=== PATIENT | female | born 1995 | race Caucasian/White ===

== ENCOUNTER 2018-01-27 14:04 | Emergency (ER) | payer OTHER ==
[~2018-01-27] VITALS: Ht 162.6 cm; Wt 90.7 kg
[2018-01-27 14:33] VITALS: BP 128/64
--- NOTE | 2018-01-27 15:25 | NUR ---
PT AMBULATES TO BED 8
--- NOTE | 2018-01-27 15:30 | NUR ---
PATIENT PRESENTS TO ED WITH COMPLAINTS OF ABNORMAL VAGINAL BLEEDING X 3 DAYS. PATIENT STATES SHE SOAKS THROUGH 2-3 PADS PER HOUR. DENIES N/V/D; SKIN IS PINK/WARM/DRY; AAOX4 WITH EVEN AND STEADY GAIT; LUNGS CLEAR BL; HR EVEN AND REGULAR; PT DENIES ANY FEVER, CP, SOB, OR COUGH AT THIS TIME; PATIENT STATES PAIN OF 0/10 AT THIS TIME; VSS; PATIENT POSITIONED FOR COMFORT; HOB ELEVATED; BEDRAILS UP X1; BED DOWN. ER MD MADE AWARE OF PT STATUS.
[2018-01-27 16:14] LABS: BASOPHILS % (AUTO) 0.2 % (0.0-2.0); EOSINOPHILS # (AUTO) 0.2 K/uL (0-0.4); EOSINOPHILS % (AUTO) 1.3 % (0.0-4.0); HEMATOCRIT 40.3 % (36-48); HEMOGLOBIN 12.9 g/dL (12.0-16.0); LYMPHOCYTES # (AUTO) 1.8 K/uL (2.5-16.5); MEAN CORPUSCULAR HEMOGLOBIN 26 pg (27-31); MEAN CORPUSCULAR HGB CONC 32 g/dL (33-37); MEAN CORPUSCULAR VOLUME 81.2 fL (80-94); MONOCYTES # (AUTO) 0.6 K/uL (0.8-1.0); MONOCYTES % (AUTO) 4.5 % (1.7-9.3); NEUTROPHILS # (AUTO) 11.5 K/uL (1.8-7.7); PLATELET COUNT (AUTO) 310 K/uL (140-450); RED BLOOD CELL COUNT(AUTO) 4.96 MIL/uL (4.20-5.40); RED CELL DISTRIBUTION WIDTH 15.7 % (11.6-13.7); WHITE BLOOD COUNT (AUTO) 14.2 K/uL (4.8-10.8)
[2018-01-27 16:21] LABS: BILIRUBIN,URINE NEGATIVE (NEGATIVE); BLOOD, URINE 3+ (NEGATIVE); LEUKOCYTE ESTERASE ,URINE TRACE (NEGATIVE); NITRITE, URINE NEGATIVE (NEGATIVE); UGLUCOSE NEGATIVE (NEGATIVE)
[2018-01-27 16:25] LABS: APPEARANCE,URINE BLOODY (CLEAR); COLOR,URINE BLOODY (YELLOW)
[2018-01-27 16:26] LABS: RBC,URINE TOO NUMEROUS TO COUN /HPF (0-5)
[2018-01-27 16:31] LABS: PROTHROMBIN TIME 9.3 secs (10.8-13.4)
[2018-01-27 16:38] VITALS: BP 128/64
== END 2018-01-27 16:35 | disposition home or self-care (01) ==
LOC: MED 14:04
DX: N92.0 Excessive and frequent menstruation with regular cycle (principal); N94.6 Dysmenorrhea, unspecified
CPT/HCPCS: 36415; 81001; 81025; 85025; 85610; 85730; 87086; 99284

== ENCOUNTER 2020-01-12 02:29 | Inpatient (IN) | payer OTHER ==
[~2020-01-12] VITALS: Ht 162.6 cm; Wt 104.3 kg
--- NOTE | 2020-01-12 02:35 | NUR ---
BIB WHEELCHAIR TO ER BED 5
[2020-01-12 02:40] VITALS: BP 129/77
--- NOTE | 2020-01-12 02:48 | NUR ---
DR. RENEE AT BEDSIDE.
[2020-01-12] MEDS ORDERED: IBUPROFEN 800 MG TAB PO ONE (02:50)
--- NOTE | 2020-01-12 02:57 | NUR ---
PT UNABLE TO GIVE URINE AT THIS TIME.
--- NOTE | 2020-01-12 02:57 | NUR ---
24 Y/O F PRESENTS TO ED C/O RLQ PAIN / RADIATING TO MIDDLE LOWER ABD X 0100. PT ADMITS TO N/V. PT DESCRIBES THE PAIN TO BE SHARP AND STABBING. PT IS 15 WEEKS WITH FIRST BABY. DOES HAVE CARE. DENIES ANY VAGINAL DISCHARGE, BLEEDING. BED LOCKED AND IN LOWEST POSITION, SIDE RAIL UP X1. WILL CONTINUE TO MONITOR. MHX: DENIES NKA
[2020-01-12 03:00] LABS: ANION GAP 15.4 (8-16); CREATININE 0.6 mg/dL (0.6-1.3); POTASSIUM 3.4 mmol/L (3.5-5.1)
[2020-01-12 03:10] LABS: BASOPHILS % (AUTO) 0.2 % (0.0-2.0); EOSINOPHILS # (AUTO) 0.3 K/uL (0-0.4); EOSINOPHILS % (AUTO) 2.2 % (0.0-4.0); HEMATOCRIT 37.3 % (36-48); HEMOGLOBIN 12.1 g/dL (12.0-16.0); LYMPHOCYTES # (AUTO) 3.2 K/uL (2.5-16.5); LYMPHOCYTES % (AUTO) 23.8 % (20.5-51.1); MEAN CORPUSCULAR HEMOGLOBIN 27 pg (27-31); MEAN CORPUSCULAR HGB CONC 32 g/dL (33-37); MEAN CORPUSCULAR VOLUME 83.2 fL (80-94); MONOCYTES # (AUTO) 0.8 K/uL (0.8-1.0); MONOCYTES % (AUTO) 6.2 % (1.7-9.3); NEUTROPHILS # (AUTO) 9.2 K/uL (1.8-7.7); NEUTROPHILS % (AUTO) 67.6 % (42.2-75.2); PLATELET COUNT (AUTO) 289 K/uL (140-450); RED BLOOD CELL COUNT(AUTO) 4.49 MIL/uL (4.20-5.40); RED CELL DISTRIBUTION WIDTH 16.5 % (11.6-13.7); WHITE BLOOD COUNT (AUTO) 13.5 K/uL (4.8-10.8)
--- NOTE | 2020-01-12 03:10 | NUR ---
ASSISTED PT TO THE RESTROOM VIA WHEELCHAIR, PT TRYING TO GIVE URINE.
[2020-01-12] MEDS ORDERED: ONDANSETRON 4 MG/2 ML VIAL IM ONE (03:15)
--- NOTE | 2020-01-12 03:20 | NUR ---
URINE SAMPLE TAKEN TO LAB BY CLARICE HARRY.
[2020-01-12 03:35] LABS: APPEARANCE,URINE CLOUDY (CLEAR); BILIRUBIN,URINE NEGATIVE (NEGATIVE); BLOOD, URINE NEGATIVE (NEGATIVE); COLOR,URINE YELLOW (YELLOW); LEUKOCYTE ESTERASE ,URINE TRACE (NEGATIVE); NITRITE, URINE NEGATIVE (NEGATIVE); UGLUCOSE NEGATIVE (NEGATIVE)
[2020-01-12 03:40] LABS: RBC,URINE 0-5 /HPF (0-5)
[2020-01-12] MEDS ORDERED: NACL 0.9% 1,000 ML IV ONE ×2 (04:20→05:00)
[2020-01-12] MEDS ORDERED: MORPHINE SULFATE 2 MG/ML SYR IVP ONE ×3 (04:20→06:40)
--- NOTE | 2020-01-12 04:37 | NUR ---
RT forearm PIVC initiated. tolerated well.
--- NOTE | 2020-01-12 05:30 | NUR ---
PT STILL IN ALOT OF PATIENT, PROVIDED PT WITH WARM BLANKETS, WARM PACKS WITH NO RELIEF. MEDICATED PT PER DR'S ORDERS, NO RELIEF.
[2020-01-12] MEDS ORDERED: PNV1TABL5 PO (06:01)
[2020-01-12] MEDS ORDERED: MORPHINE SULFATE 2 MG/ML SYR ONE ×2 (06:39→08:34)
--- NOTE | 2020-01-12 06:40 | NUR ---
SPOKE TO DR. RANGEL ON THE PHONE REGARDING PT'S PAIN LEVEL. MEDICATED PT AND PROVIDED NON-PHARMACOLOGICAL INTERVENTION WITH NO RELIEF. PER DR. RANGEL, OK TO GIVE MORPHINE 2 MG IVP.
--- NOTE | 2020-01-12 07:10 | NUR ---
GAVE REPORT TO ROMMEL BARNEY FOR CONTINUITY OF CARE.
--- NOTE | 2020-01-12 07:57 | NUR ---
PT IS AWAKE AND ALERT IN BED, STATES SHE FEELS PAIN COMING BACK BUT DOES NOT WANT TO TAKE ANYTHING AT THIS TIME. PT GIVEN WARM BLANKET. VSS
--- NOTE | 2020-01-12 08:30 | NUR ---
PT C/O 03/20 LOWER ABD PAIN, CLAIRE DANIEL FOR PAIN MED ORDER
[2020-01-12] MEDS ORDERED: MORPHINE SULFATE 2 MG/ML SYR IVP PRN ×3 (08:35→15:00)
--- NOTE | 2020-01-12 08:39 | NUR ---
SPOKE WITH MD ATKINS, VERBAL ORDER OF 2 MG MORPHINE. ORDER CARRIED OUT
--- NOTE | 2020-01-12 08:42 | NUR ---
Dr. Diez is evaluating the patient at bedside.
--- NOTE | 2020-01-12 08:45 | NUR ---
2MG MORPHINE GIVEN IVP. UNABLE TO CHART MED IN [facility].
[2020-01-12] MEDS ORDERED: BUPIVACAINE-MPF/EPI 0.25% 30 ML VIAL INJ ONE (08:53)
[2020-01-12 09:02] VITALS: BP 129/77
--- NOTE | 2020-01-12 09:02 | NUR ---
PT TAKE BY RN REINA FOR SURGERY
[2020-01-12] MEDS ORDERED: HYDROmorphone PFS 2 MG/ML SYR ONE (09:04)
[2020-01-12] MEDS ORDERED: ONDANSETRON 4 MG/2 ML VIAL ONE (09:04)
[2020-01-12] MEDS ORDERED: SUCCINYLCHOLINE CHLORIDE 200 MG/10 ML VIAL IVP ONE (09:04)
[2020-01-12] MEDS ORDERED: PROPOFOL 200 MG/20 ML VIAL IV ONE (09:04)
[2020-01-12] MEDS ORDERED: DESFLURANE 240 ML BTL INH ONE (09:04)
--- NOTE | 2020-01-12 09:09 | NUR ---
PT TAKEN TO OR BY REINA CARNEY VIA SUNI. REPORT GIVEN TO REINA CARNEY.
[2020-01-12] MEDS ORDERED: LACTATED RINGERS 1,000 ML IV SCH (13:00)
[2020-01-12] MEDS ORDERED: NACL 0.9% 1,000 ML IV SCH (14:58)
[2020-01-12] MEDS ORDERED: ONDANSETRON 4 MG/2 ML VIAL IM/IVP PRN (15:00)
[2020-01-12 15:46] LABS: CHOL/HDL RATIO 2.5 (1-4.5); THYROID STIMULATING HORMONE 1.11 uIU/mL (0.34-3.74)
[2020-01-12 16:23] LABS: BARBITURATE, URINE NEGATIVE ng/ml (NEG <=200); BENZODIAZEPINE, URINE NEGATIVE ng/mL (NEG <=200); CANNABINOID, URINE NEGATIVE ng/mL (NEG <=50); COCAINE, URINE NEGATIVE ng/mL (NEG <=300); OPIATE, URINE NEGATIVE ng/mL (NEG <=2000); PHENCYCLIDINE SCREEN,URINE NEGATIVE ng/mL (NEG <=25)
--- NOTE | 2020-01-12 16:34 | NUR ---
PATIENT HAS BEEN SCREENED AND CATEGORIZED LOW NUTRITION RISK. PATIENT WILL BE SEEN WITHIN 7 DAYS OF ADMISSION. 01/18/[address]
[2020-01-12] MEDS: ACETAMINOPHEN 325 MG TAB PO PRN (22:05)
[2020-01-13 06:25] LABS: BASOPHILS % (AUTO) 0.2 % (0.0-2.0); EOSINOPHILS # (AUTO) 0.1 K/uL (0-0.4); EOSINOPHILS % (AUTO) 0.9 % (0.0-4.0); LYMPHOCYTES # (AUTO) 1.9 K/uL (2.5-16.5); LYMPHOCYTES % (AUTO) 14.8 % (20.5-51.1); MEAN CORPUSCULAR HEMOGLOBIN 27 pg (27-31); MEAN CORPUSCULAR HGB CONC 32 g/dL (33-37); MEAN CORPUSCULAR VOLUME 84.1 fL (80-94); MONOCYTES # (AUTO) 0.7 K/uL (0.8-1.0); MONOCYTES % (AUTO) 5.5 % (1.7-9.3); NEUTROPHILS # (AUTO) 10.1 K/uL (1.8-7.7); NEUTROPHILS % (AUTO) 78.6 % (42.2-75.2); PLATELET COUNT (AUTO) 252 K/uL (140-450); RED BLOOD CELL COUNT(AUTO) 4.04 MIL/uL (4.20-5.40); RED CELL DISTRIBUTION WIDTH 16.5 % (11.6-13.7); WHITE BLOOD COUNT (AUTO) 12.9 K/uL (4.8-10.8)
[2020-01-13 06:48] LABS: MAGNESIUM 1.8 mg/dL (1.8-2.4); PHOSPHORUS 3.2 mg/dL (2.5-4.9)
[2020-01-13 06:59] LABS: ANION GAP 14.7 (8-16); CARBON DIOXIDE 21.4 mmol/L (21-32); CREATININE 0.5 mg/dL (0.6-1.3); POTASSIUM 3.1 mmol/L (3.5-5.1)
[2020-01-13] MEDS ORDERED: MAG SULF 2000 MG/WATER PREMIX 50 ML IV PRN (08:55)
[2020-01-13] MEDS: DOCUSATE SODIUM 100 MG GELCAP PO PRN (09:50)
[2020-01-13] MEDS: ACETAMINOPHEN 325 MG TAB PO PRN ×2 (09:52→18:32)
[2020-01-13] MEDS: ENOXAPARIN 100 MG/ML SYR SUBQ SCH ×2 (09:57→21:03)
[2020-01-13] MEDS: POTASSIUM CHLORIDE 10 MEQ TABER PO PRN (09:58)
[2020-01-14] MEDS: ACETAMINOPHEN 325 MG TAB PO PRN (00:50)
[2020-01-14 05:37] LABS: BASOPHILS % (AUTO) 0.2 % (0.0-2.0); EOSINOPHILS # (AUTO) 0.4 K/uL (0-0.4); EOSINOPHILS % (AUTO) 2.9 % (0.0-4.0); LYMPHOCYTES # (AUTO) 2.9 K/uL (2.5-16.5); LYMPHOCYTES % (AUTO) 22.6 % (20.5-51.1); MEAN CORPUSCULAR HEMOGLOBIN 27 pg (27-31); MEAN CORPUSCULAR HGB CONC 32 g/dL (33-37); MEAN CORPUSCULAR VOLUME 84.1 fL (80-94); MONOCYTES # (AUTO) 0.6 K/uL (0.8-1.0); MONOCYTES % (AUTO) 4.8 % (1.7-9.3); NEUTROPHILS # (AUTO) 8.9 K/uL (1.8-7.7); NEUTROPHILS % (AUTO) 69.5 % (42.2-75.2); PLATELET COUNT (AUTO) 247 K/uL (140-450); RED BLOOD CELL COUNT(AUTO) 4.04 MIL/uL (4.20-5.40); RED CELL DISTRIBUTION WIDTH 16.6 % (11.6-13.7); WHITE BLOOD COUNT (AUTO) 12.7 K/uL (4.8-10.8)
[2020-01-14 06:25] LABS: ANION GAP 14.5 (8-16); CARBON DIOXIDE 21.8 mmol/L (21-32); CREATININE 0.5 mg/dL (0.6-1.3); POTASSIUM 3.3 mmol/L (3.5-5.1)
[2020-01-14 06:30] LABS: MAGNESIUM 1.6 mg/dL (1.8-2.4); PHOSPHORUS 3.7 mg/dL (2.5-4.9)
[2020-01-14 09:06] LABS: T4 (THYROXINE) 9.5 ug/dL (4.5-12.0)
[2020-01-14] MEDS: DOCUSATE SODIUM 100 MG GELCAP PO PRN (09:09)
[2020-01-14] MEDS: POTASSIUM CHLORIDE 10 MEQ TABER PO PRN (09:10)
[2020-01-14] MEDS: ENOXAPARIN 100 MG/ML SYR SUBQ SCH (09:14)
[2020-01-14] MEDS ORDERED: ACET-1182 PO (10:33)
[2020-01-14] MEDS ORDERED: CAMERA MC ONE (15:13)
== END 2020-01-14 16:52 | disposition home or self-care (01) | DRG 818 ==
LOC: MED 02:29 → MTU 05:00 → MFCC 11:47
PROC: 0UT14ZZ Resection of Left Ovary, Percutaneous Endoscopic Approach (ICD-10-PCS; 2020-01-12)
PROC: 0UT64ZZ Resection of Left Fallopian Tube, Percutaneous Endoscopic Approach (ICD-10-PCS; principal; 2020-01-12 08:49)
DX: O26.891 Other specified pregnancy related conditions, first trimester (principal); N83.512 Torsion of left ovary and ovarian pedicle; O23.41 Unspecified infection of urinary tract in pregnancy, first trimester; O10.911 Unspecified pre-existing hypertension complicating pregnancy, first trimester; Z20.828 Contact with and (suspected) exposure to other viral communicable diseases; O99.211 Obesity complicating pregnancy, first trimester; E66.9 Obesity, unspecified; D39.8 Neoplasm of uncertain behavior of other specified female genital organs; O99.281 Endocrine, nutritional and metabolic diseases complicating pregnancy, first trimester; E87.6 Hypokalemia; Z71.3 Dietary counseling and surveillance; Z3A.15 15 weeks gestation of pregnancy; Z83.3 Family history of diabetes mellitus
CPT/HCPCS: 36415; 76805; 76815; 80048; 80305; 81001; 82150; 83036; 83690; 83735; 83880; 84100; 84134; 84436; 84443; 84702; 85025; 85610; 85730; 86900; 86901; 87081; 87086; 88307; 96361; 96372; 96374; 96376; 99285; J0330; J0696; J1170; J1650; J2270; J2405; J2704; J3490; J7060; J7120; Q0092; U0003-CS

== ENCOUNTER 2021-01-15 10:04 | Emergency (ER) | payer SELFPAY ==
[~2021-01-15] VITALS: Ht 12.7 cm; Wt 1.8 kg
[~2021-01-15 10:04] MED LIST: ACET-1182 PO; PNV1TABL5 PO
[2021-01-15 10:20] VITALS: BP 121/49
--- NOTE | 2021-01-15 11:19 | NUR ---
PT AMB TO BED 12
[2021-01-15] MEDS ORDERED: KETOROLAC 30 MG/ML VIAL IM ONE (12:05)
--- NOTE | 2021-01-15 12:23 | NUR ---
US IN PROGRESS AT BEDSIDE.
[2021-01-15 12:30] LABS: BASOPHILS # (AUTO) 0.1 K/uL (0.00-0.22); BASOPHILS % (AUTO) 0.4 % (0.0-2.0); EOSINOPHILS # (AUTO) 0.1 K/uL (0-0.4); EOSINOPHILS % (AUTO) 0.5 % (0.0-4.0); HEMATOCRIT 36.5 % (36-48); HEMOGLOBIN 11.9 g/dL (12.0-16.0); LYMPHOCYTES # (AUTO) 1.9 K/uL (2.5-16.5); LYMPHOCYTES % (AUTO) 12.8 % (20.5-51.1); MEAN CORPUSCULAR HEMOGLOBIN 25 pg (27-31); MEAN CORPUSCULAR HGB CONC 33 g/dL (33-37); MEAN CORPUSCULAR VOLUME 76.6 fL (80-94); MONOCYTES # (AUTO) 0.6 K/uL (0.8-1.0); MONOCYTES % (AUTO) 4.3 % (1.7-9.3); NEUTROPHILS # (AUTO) 12.1 K/uL (1.8-7.7); PLATELET COUNT (AUTO) 255 K/uL (140-450); RED BLOOD CELL COUNT(AUTO) 4.77 MIL/uL (4.20-5.40); RED CELL DISTRIBUTION WIDTH 17.2 % (11.6-13.7); WHITE BLOOD COUNT (AUTO) 14.8 K/uL (4.8-10.8)
[2021-01-15 13:13] LABS: ALBUMIN 3.7 g/dL (3.4-5.0); ANION GAP 13.7 (8-16); CARBON DIOXIDE 23.5 mmol/L (21-32); CREATININE 0.5 mg/dL (0.6-1.3); POTASSIUM 4.2 mmol/L (3.5-5.1); TOTAL BILIRUBIN 0.8 mg/dL (0.0-1.0)
--- NOTE | 2021-01-15 13:44 | NUR ---
UP TO BR WITH ASSIST, WALKED TO BR WITH UPRIGHT STEADY GAIT, STATES PAIN IS CURRENTLY CONTROLLED.
[2021-01-15] MEDS ORDERED: FAMO-90 PO (13:54)
[2021-01-15] MEDS ORDERED: BEN10 PO (13:54)
[2021-01-15 14:16] VITALS: BP 128/77
--- NOTE | 2021-01-15 14:19 | NUR ---
Patient discharged with v/s stable. Written and verbal after care instructions given and explained. Patient alert, oriented and verbalized understanding of instructions. Ambulatory with steady gait. All questions addressed prior to discharge. ID band removed. Patient advised to follow up with PMD. Rx of BENTYL, PEPCID given. Patient educated on indication of medication including possible reaction and side effects. Opportunity to ask questions provided and answered.
== END 2021-01-15 14:19 | disposition home or self-care (01) ==
LOC: MED 10:04
DX: R10.30 Lower abdominal pain, unspecified (principal); R19.7 Diarrhea, unspecified; R63.0 Anorexia
CPT/HCPCS: 36415; 76705; 80053; 81002; 81025; 83690; 85025; 96372; 99284; J1885

== ENCOUNTER 2021-04-07 10:16 | Emergency (ER) | payer MEDICAID ==
[~2021-04-07] VITALS: Ht 162.6 cm; Wt 108.9 kg
[~2021-04-07 10:16] MED LIST changes: +BEN10 PO; +FAMO-90 PO
[2021-04-07 10:25] VITALS: BP 131/75
--- NOTE | 2021-04-07 10:32 | NUR ---
Patient ambulated with steady gait to bed 7.
--- NOTE | 2021-04-07 10:45 | NUR ---
26 y/o female c/o nausea/vomiting x 2 days and headache since yesterday. Referred by MD for evaluation due to headache. States 9/10 aching headache with dizziness. Denies blurred vision. States approx 9 wks . Skin warm, dry, intact. Pt denies taking medication for pain. Awake and alert. Bed locked and in lowest position. Medhx: left ovary removal (2019), gallstones
[2021-04-07] MEDS ORDERED: ONDANSETRON 4 MG ODT PO ONE (11:15)
[2021-04-07] MEDS ORDERED: METOCLOPRAMIDE 10 MG TAB PO ONE (11:55)
[2021-04-07] MEDS ORDERED: PYRIDOXINE 50 MG TAB PO ONE (11:55)
[2021-04-07] MEDS ORDERED: CRUSHER, PILL MC ONE (12:16)
--- NOTE | 2021-04-07 12:41 | NUR ---
Pt states relief of nausea at this time. denies abd pain. VSS
[2021-04-07 13:29] LABS: APPEARANCE,URINE CLEAR (CLEAR); BILIRUBIN,URINE NEGATIVE (NEGATIVE); BLOOD, URINE NEGATIVE (NEGATIVE); COLOR,URINE YELLOW (YELLOW); LEUKOCYTE ESTERASE ,URINE NEGATIVE (NEGATIVE); NITRITE, URINE NEGATIVE (NEGATIVE); PH,URINE 6.5 (5.0-9.0); UGLUCOSE NEGATIVE (NEGATIVE)
[2021-04-07] MEDS ORDERED: DOXY25TA61 PO (13:43)
[2021-04-07] MEDS ORDERED: METO-486 PO (13:43)
[2021-04-07] MEDS ORDERED: PYRI-218 PO (13:43)
[2021-04-07 14:01] VITALS: BP 141/80
--- NOTE | 2021-04-07 14:03 | NUR ---
Patient discharged with v/s stable. Written and verbal after care instructions given and explained. Patient alert, oriented and verbalized understanding of instructions. Ambulatory with steady gait. All questions addressed prior to discharge. ID band removed. Patient advised to follow up with PMD. Rx of doxylamine succinate, reglan, and vitamin b 6 given. Patient educated on indication of medication including possible reaction and side effects. Opportunity to ask questions provided and answered.
== END 2021-04-07 14:03 | disposition home or self-care (01) ==
LOC: MED 10:16
DX: O21.8 Other vomiting complicating pregnancy (principal); R11.2 Nausea with vomiting, unspecified; Z3A.09 9 weeks gestation of pregnancy
CPT/HCPCS: 81003; 81025; 99284; J8597; Q0162